=== PATIENT | female | born 1985 | race Caucasian/White ===

== ENCOUNTER 2017-04-26 11:38 | Emergency (ER) | payer OTHER, MEDICAID | END 2017-04-26 13:51 | disposition home or self-care (01) | LOC: M ED 11:38 | DX: F41.9 Anxiety disorder, unspecified (principal); I10 Essential (primary) hypertension; F31.9 Bipolar disorder, unspecified | CPT/HCPCS: 99283 ==

== ENCOUNTER → 2017-05-05 | Outpatient (REF) | payer OTHER | LOC: M LAB REF 19:23 | DX: F11.20 Opioid dependence, uncomplicated (principal) ==

== ENCOUNTER → 2017-05-12 | Outpatient (REF) | payer OTHER | LOC: M LAB REF 22:28 | DX: F11.20 Opioid dependence, uncomplicated (principal) | CPT/HCPCS: G0480 ==

== ENCOUNTER → 2017-05-19 | Outpatient (REF) | payer OTHER | LOC: M LAB REF 19:49 | DX: F11.20 Opioid dependence, uncomplicated (principal) | CPT/HCPCS: G0480 ==

== ENCOUNTER → 2017-05-26 | Outpatient (REF) | payer OTHER | LOC: M LAB REF 21:46 | DX: F11.20 Opioid dependence, uncomplicated (principal) ==

== ENCOUNTER → 2017-06-02 | Outpatient (REF) | payer OTHER ==
[2017-06-09 14:15] LABS: AMPHETAMINE SCREEN, URINE Negative ng/mL (Cutoff=1000); BARBITURATES SCREEN, URINE Negative ng/mL (Cutoff=200); BENZODIAZEPINES, URINE SCREEN Negative ng/mL (Cutoff=200); CANNABINOID SCREEN, URINE Negative ng/mL (Cutoff=20); COCAINE SCREEN, URINE Negative ng/mL (Cutoff=300); FENTANYL URINE SCREEN Negative pg/mL (Cutoff=2000); METHADONE, URINE SCREEN Negative ng/mL (Cutoff=300); NALOXONE RESULT Positive (.); OPIATE SCREEN, URINE Negative ng/mL (Cutoff=300); OXYCODONE, SCREEN, URINE Negative ng/mL (Cutoff=100); PCP SCREEN, URINE Negative ng/mL (Cutoff=25); SPECIFIC GRAVITY, URINE 1.011 (.); URINE BUPRENORPHINE Positive (.); URINE BUPRENORPHINE Positive (Cutoff=10); URINE BUPRENORPHINE See Final Results ng/mL (Cutoff=10); URINE BUPRENORPHINE CONFIRM 152 ng/mL (Cutoff=10); URINE NORBUPRENORPHINE Positive (.); URINE NORBUPRENORPHINE CONFIRM 546 ng/mL (Cutoff=10); pH, URINE 5.7 (4.5-8.9)
== END ==
LOC: M LAB REF 20:11
DX: F11.20 Opioid dependence, uncomplicated (principal)
CPT/HCPCS: G0480

== ENCOUNTER → 2017-06-08 | Outpatient (REF) | payer OTHER | LOC: M LAB REF 08:56 | DX: F11.20 Opioid dependence, uncomplicated (principal) ==

== ENCOUNTER → 2017-06-16 | Outpatient (REF) | payer OTHER ==
[2017-06-22 14:18] LABS: AMPHETAMINE SCREEN, URINE Negative ng/mL (Cutoff=1000); BARBITURATES SCREEN, URINE Negative ng/mL (Cutoff=200); BENZODIAZEPINES, URINE SCREEN Negative ng/mL (Cutoff=200); CANNABINOID SCREEN, URINE Negative ng/mL (Cutoff=20); COCAINE SCREEN, URINE Negative ng/mL (Cutoff=300); CREATININE, URINE 80.7 mg/dL (20.0-300.0); FENTANYL URINE SCREEN Negative pg/mL (Cutoff=2000); METHADONE, URINE SCREEN Negative ng/mL (Cutoff=300); NALOXONE RESULT Positive (.); OPIATE SCREEN, URINE Negative ng/mL (Cutoff=300); OXYCODONE, SCREEN, URINE Negative ng/mL (Cutoff=100); PCP SCREEN, URINE Negative ng/mL (Cutoff=25); SPECIFIC GRAVITY, URINE 1.016 (.); URINE BUPRENORPHINE Positive (.); URINE BUPRENORPHINE Positive (Cutoff=10); URINE BUPRENORPHINE See Final Results ng/mL (Cutoff=10); URINE BUPRENORPHINE CONFIRM 214 ng/mL (Cutoff=10); URINE NORBUPRENORPHINE Positive (.); URINE NORBUPRENORPHINE CONFIRM 772 ng/mL (Cutoff=10); pH, URINE 6.1 (4.5-8.9)
== END ==
LOC: M LAB REF 17:26
DX: F11.20 Opioid dependence, uncomplicated (principal)
CPT/HCPCS: G0480

== ENCOUNTER → 2017-07-07 | Outpatient (REF) | payer OTHER | LOC: M LAB REF 16:38 | DX: F11.20 Opioid dependence, uncomplicated (principal) ==

== ENCOUNTER 2017-07-17 19:23 | Emergency (ER) | payer OTHER ==
[2017-07-17] MEDS: ALPRAZolam 0.5 MG TAB PO (21:19)
== END 2017-07-17 21:56 | disposition home or self-care (01) ==
LOC: M ED 19:23
DX: F19.188 Other psychoactive substance abuse with other psychoactive substance-induced disorder (principal); F41.9 Anxiety disorder, unspecified; F17.210 Nicotine dependence, cigarettes, uncomplicated; Z79.899 Other long term (current) drug therapy
CPT/HCPCS: 99283

== ENCOUNTER → 2017-07-21 | Outpatient (REF) | payer OTHER | LOC: M LAB REF 15:15 | DX: F11.20 Opioid dependence, uncomplicated (principal) | CPT/HCPCS: G0480 ==

== ENCOUNTER → 2017-08-04 | Outpatient (REF) | payer OTHER ==
[2017-08-11 14:15] LABS: ALPRAZOLAM, URINE Positive (.); ALPRAZOLAM, URINE CONFIRM 226 ng/mL (Cutoff=100); AMPHETAMINE SCREEN, URINE Negative ng/mL (Cutoff=1000); BARBITURATES SCREEN, URINE Negative ng/mL (Cutoff=200); BENZODIAZEPINES, URINE Positive ng/mL (Cutoff=100); BENZODIAZEPINES, URINE SCREEN See Final Results ng/mL (Cutoff=200); CANNABINOID SCREEN, URINE Negative ng/mL (Cutoff=20); CLONAZEPAM, URINE Negative (Cutoff=100); COCAINE SCREEN, URINE Negative ng/mL (Cutoff=300); CREATININE, URINE 56.4 mg/dL (20.0-300.0); FENTANYL URINE SCREEN Negative pg/mL (Cutoff=2000); FLURAZEPAM, URINE Negative (Cutoff=100); LORAZEPAM, URINE Negative (Cutoff=100); METHADONE, URINE SCREEN Negative ng/mL (Cutoff=300); MIDAZOLAM, URINE Negative (Cutoff=100); NALOXONE RESULT Positive (.); NORDIAZEPAM, URINE Negative (Cutoff=100); OPIATE SCREEN, URINE Negative ng/mL (Cutoff=300); OXAZEPAM, URINE Negative (Cutoff=100); OXYCODONE, SCREEN, URINE Negative ng/mL (Cutoff=100); PCP SCREEN, URINE Negative ng/mL (Cutoff=25); SPECIFIC GRAVITY, URINE 1.008 (.); TEMAZEPAM, URINE Negative (Cutoff=100); TRIAZOLAM, URINE Negative (Cutoff=100); URINE BUPRENORPHINE Positive (.); URINE BUPRENORPHINE Positive (Cutoff=10); URINE BUPRENORPHINE See Final Results ng/mL (Cutoff=10); URINE BUPRENORPHINE CONFIRM 160 ng/mL (Cutoff=10); URINE NORBUPRENORPHINE Positive (.); URINE NORBUPRENORPHINE CONFIRM 564 ng/mL (Cutoff=10); pH, URINE 5.5 (4.5-8.9)
== END ==
LOC: M LAB REF 09:57
DX: F11.20 Opioid dependence, uncomplicated (principal)

== ENCOUNTER → 2017-08-06 | Outpatient (REF) | payer OTHER ==
[2017-08-12 10:14] LABS: ALPRAZOLAM, URINE Positive (.); ALPRAZOLAM, URINE CONFIRM 870 ng/mL (Cutoff=100); AMPHETAMINE SCREEN, URINE Negative ng/mL (Cutoff=1000); BARBITURATES SCREEN, URINE Negative ng/mL (Cutoff=200); BENZODIAZEPINES, URINE Positive ng/mL (Cutoff=100); BENZODIAZEPINES, URINE SCREEN See Final Results ng/mL (Cutoff=200); CANNABINOID SCREEN, URINE Negative ng/mL (Cutoff=20); CLONAZEPAM, URINE Negative (Cutoff=100); COCAINE SCREEN, URINE Negative ng/mL (Cutoff=300); CREATININE, URINE 154.1 mg/dL (20.0-300.0); FENTANYL URINE SCREEN Negative pg/mL (Cutoff=2000); FLURAZEPAM, URINE Negative (Cutoff=100); LORAZEPAM, URINE Negative (Cutoff=100); METHADONE, URINE SCREEN Negative ng/mL (Cutoff=300); MIDAZOLAM, URINE Negative (Cutoff=100); NALOXONE RESULT Positive (.); NORDIAZEPAM, URINE Negative (Cutoff=100); OPIATE SCREEN, URINE Negative ng/mL (Cutoff=300); OXAZEPAM, URINE Negative (Cutoff=100); OXYCODONE, SCREEN, URINE Negative ng/mL (Cutoff=100); PCP SCREEN, URINE Negative ng/mL (Cutoff=25); SPECIFIC GRAVITY, URINE 1.017 (.); TEMAZEPAM, URINE Negative (Cutoff=100); TRIAZOLAM, URINE Negative (Cutoff=100); URINE BUPRENORPHINE Positive (.); URINE BUPRENORPHINE Positive (Cutoff=10); URINE BUPRENORPHINE See Final Results ng/mL (Cutoff=10); URINE BUPRENORPHINE CONFIRM 640 ng/mL (Cutoff=10); URINE NORBUPRENORPHINE Positive (.); URINE NORBUPRENORPHINE CONFIRM 722 ng/mL (Cutoff=10); pH, URINE 5.5 (4.5-8.9)
== END ==
LOC: M LAB REF 16:26
DX: F11.20 Opioid dependence, uncomplicated (principal)
CPT/HCPCS: G0480

== ENCOUNTER → 2017-08-10 | Outpatient (REF) | payer OTHER | LOC: M LAB REF 11:48 | DX: F11.20 Opioid dependence, uncomplicated (principal) | CPT/HCPCS: G0480 ==

== ENCOUNTER → 2017-08-13 | Outpatient (REF) | payer OTHER | LOC: M LAB REF 19:01 | DX: F11.20 Opioid dependence, uncomplicated (principal) ==

== ENCOUNTER → 2017-08-17 | Outpatient (REF) | payer OTHER ==
[2017-08-31 14:16] LABS: ALPRAZOLAM, URINE Positive (.); ALPRAZOLAM, URINE CONFIRM 174 ng/mL (Cutoff=100); AMPHETAMINE SCREEN, URINE Negative ng/mL (Cutoff=1000); BARBITURATES SCREEN, URINE Negative ng/mL (Cutoff=200); BENZODIAZEPINES, URINE Positive ng/mL (Cutoff=100); BENZODIAZEPINES, URINE SCREEN See Final Results ng/mL (Cutoff=200); CANNABINOID SCREEN, URINE Negative ng/mL (Cutoff=20); CLONAZEPAM, URINE Negative (Cutoff=100); COCAINE SCREEN, URINE Negative ng/mL (Cutoff=300); CREATININE, URINE 40.2 mg/dL (20.0-300.0); FENTANYL URINE SCREEN Negative pg/mL (Cutoff=2000); FLURAZEPAM, URINE Negative (Cutoff=100); LORAZEPAM, URINE Negative (Cutoff=100); METHADONE, URINE SCREEN Negative ng/mL (Cutoff=300); MIDAZOLAM, URINE Negative (Cutoff=100); NALOXONE RESULT Positive (.); NORDIAZEPAM, URINE Negative (Cutoff=100); OPIATE SCREEN, URINE Negative ng/mL (Cutoff=300); OXAZEPAM, URINE Negative (Cutoff=100); OXYCODONE, SCREEN, URINE Negative ng/mL (Cutoff=100); PCP SCREEN, URINE Negative ng/mL (Cutoff=25); SPECIFIC GRAVITY, URINE 1.008 (.); TEMAZEPAM, URINE Negative (Cutoff=100); TRIAZOLAM, URINE Negative (Cutoff=100); URINE BUPRENORPHINE Positive (.); URINE BUPRENORPHINE Positive (Cutoff=10); URINE BUPRENORPHINE See Final Results ng/mL (Cutoff=10); URINE BUPRENORPHINE CONFIRM 22 ng/mL (Cutoff=10); URINE NORBUPRENORPHINE Positive (.); URINE NORBUPRENORPHINE CONFIRM 100 ng/mL (Cutoff=10); pH, URINE 7.4 (4.5-8.9)
== END ==
LOC: M LAB REF 18:47
DX: F11.20 Opioid dependence, uncomplicated (principal)
CPT/HCPCS: G0480

== ENCOUNTER 2017-09-14 13:04 | Emergency (ER) | payer MEDICAID, OTHER | END 2017-09-14 13:33 | disposition home or self-care (01) | LOC: M ED 13:04 | DX: Z76.0 Encounter for issue of repeat prescription (principal); Z72.0 Tobacco use; Z79.899 Other long term (current) drug therapy | CPT/HCPCS: 99282 ==

== ENCOUNTER 2017-09-24 12:09 | Emergency (ER) | payer MEDICAID, SELFPAY | END 2017-09-24 13:34 | disposition home or self-care (01) | LOC: M ED 12:09 | DX: Z76.0 Encounter for issue of repeat prescription (principal); F19.10 Other psychoactive substance abuse, uncomplicated; J45.909 Unspecified asthma, uncomplicated; F17.200 Nicotine dependence, unspecified, uncomplicated; Z79.899 Other long term (current) drug therapy | CPT/HCPCS: 99282 ==

== ENCOUNTER → 2017-10-04 | Outpatient (REF) | payer MEDICAID | LOC: M SFHCPLAZ 14:21 | DX: F19.10 Other psychoactive substance abuse, uncomplicated (principal) ==

== ENCOUNTER → 2017-12-08 | Outpatient (CLI) | payer MEDICAID | LOC: M OUTALCOH 13:16 | DX: Z13.89 Encounter for screening for other disorder (principal); F11.20 Opioid dependence, uncomplicated; F12.10 Cannabis abuse, uncomplicated ==

== ENCOUNTER 2017-12-16 15:50 | Outpatient (RCR) | payer MEDICAID | END 2017-12-19 | LOC: M OUTALCOH 15:50 | DX: F11.20 Opioid dependence, uncomplicated (principal); F12.10 Cannabis abuse, uncomplicated ==

== ENCOUNTER 2017-12-23 14:00 | Outpatient (RCR) | payer MEDICAID | END 2018-01-19 | LOC: M OUTALCOH 01-03 16:00 | DX: F11.20 Opioid dependence, uncomplicated (principal); F12.10 Cannabis abuse, uncomplicated ==

== ENCOUNTER 2018-11-15 10:46 | Inpatient (IN) | payer MEDICAID, OTHER ==
[~2018-11-15] VITALS: Ht 157.5 cm; Wt 61.7 kg
[~2018-11-15 10:46] MED LIST: ABIL10TA OR; ABIL1TAB11 PO; ATIV1TAB7 PO; KLON0.5T OR; KLON2TAB OR; LISI10TA4 PO; LORA0.5T11 PO; PRAZ2CAP PO; PROZ20CA11 PO; SUBO8MIS SL; TRAZ-252 PO; XANA1TAB2 PO; XANA2TAB2 PO; ZOFR4TAB14 PO; ZOLO PO; ZOLO50TA OR
[2018-11-15] MEDS ORDERED: ALPRAZolam 0.5 MG TAB PO ONE (11:00)
[2018-11-15] MEDS ORDERED: diphenhydrAMINE INJ 50MG/ML VIAL (J1200) IM ONE ×2 (11:30→19:30)
[2018-11-15] MEDS ORDERED: LORazepam 2 MG/ML VIAL (J2060) IM ONE ×2 (11:30→19:30)
[2018-11-15] MEDS ORDERED: HALOPERIDOL 5 MG/ML VIAL (J1630) IM ONE ×2 (11:30→19:30)
[2018-11-15 12:49] LABS: HEMATOCRIT 39.6 % (36.0-47.0); HEMOGLOBIN 13.9 g/dl (12.0-15.5); MEAN CORPUSCULAR HEMOGLOBIN 29.6 pg (27.0-33.0); MEAN CORPUSCULAR HGB CONC 35.1 g/dl (32.0-36.5); MEAN CORPUSCULAR VOLUME 84.4 fl (80.0-96.0); PLATELET COUNT, AUTOMATED 285 10^3/uL (150-450); RED BLOOD COUNT 4.69 10^6/uL (4.00-5.40)
[2018-11-15 13:02] LABS: ACETAMINOPHEN LEVEL < 2.0 UG/ML (10.0-30.0); ALBUMIN 4.1 GM/DL (3.2-5.2); ALT/SGPT 18 U/L (12-78); BILIRUBIN,DIRECT 0.2 MG/DL (0.0-0.2); BILIRUBIN,TOTAL 0.6 MG/DL (0.2-1.0); BLOOD UREA NITROGEN 13 MG/DL (7-18); CALCIUM LEVEL 9.4 MG/DL (8.5-10.1); CARBON DIOXIDE LEVEL 22 MEQ/L (21-32); CHLORIDE LEVEL 103 MEQ/L (98-107); CREATININE FOR GFR 0.98 MG/DL (0.55-1.30); ETHYL ALCOHOL (ETHANOL) 0.003 % (0.000-0.010); GLOMERULAR FILTRATION RATE > 60.0 (>60); GLUCOSE, FASTING 110 MG/DL (70-100); POTASSIUM SERUM 3.7 MEQ/L (3.5-5.1); SODIUM LEVEL 138 MEQ/L (136-145)
[2018-11-15 13:05] LABS: HCG, SERUM QUALITATIVE NEGATIVE (NEGATIVE)
[2018-11-15 14:19] LABS: AMPHETAMINES LEVEL URINE POSITIVE (NEGATIVE); BARBITURATES URINE NEGATIVE (NEGATIVE); BENZODIAZEPINES URINE NEGATIVE (NEGATIVE); CANNABINOIDS URINE POSITIVE (NEGATIVE); COCAINE METABOLITE URINE NEGATIVE (NEGATIVE); METHADONE URINE NEGATIVE (NEGATIVE); OPIATES URINE NEGATIVE (NEGATIVE); PHENCYCLIDINE URINE NEGATIVE (NEGATIVE)
[2018-11-15] MEDS ORDERED: LORazepam 1 MG TAB PO STA (16:16)
[2018-11-15 16:29] LABS: BASO # 0.1 10^3/uL (0.0-0.2); BASO % 0.5 % (0.0-1.0); EOS # 0.1 10^3/uL (0.0-0.50); EOS % 0.3 % (0.0-3.0); LYMPH # 2.5 10^3/uL (1.5-4.5); LYMPH % 13.1 % (24.0-44.0); MONO # 1.1 10^3/uL (0.0-0.8); MONO % 5.8 % (0.0-5.0); NEUTROPHILS % 79.9 % (36.0-66.0)
[2018-11-15 17:00] LABS: BASO # 0.1 10^3/uL (0.0-0.2); BASO % 0.4 % (0.0-1.0); EOS % 0.2 % (0.0-3.0); HEMATOCRIT 35.5 % (36.0-47.0); HEMOGLOBIN 12.5 g/dl (12.0-15.5); LYMPH # 3.4 10^3/uL (1.5-4.5); LYMPH % 18.6 % (24.0-44.0); MEAN CORPUSCULAR HGB CONC 35.2 g/dl (32.0-36.5); MEAN CORPUSCULAR VOLUME 85.1 fl (80.0-96.0); MONO % 5.2 % (0.0-5.0); NEUTROPHILS # 13.8 10^3/uL (1.8-7.7); NEUTROPHILS % 75.2 % (36.0-66.0); PLATELET COUNT, AUTOMATED 258 10^3/uL (150-450); RED BLOOD COUNT 4.17 10^6/uL (4.00-5.40); WHITE BLOOD COUNT 18.4 10^3/uL (4.0-10.0)
[2018-11-15] MEDS ORDERED: LORazepam 2 MG/ML VIAL (J2060) IV STA ×3 (17:20→19:54)
[2018-11-15] MEDS ORDERED: NS 1,000 ML IV ONE (17:30)
[2018-11-15 18:45] LABS: CPK CREATINE PHOSPHOKINASE 373 U/L (26-192); MB/CK RELATIVE INDEX 1.07 (< OR =4); TROPONIN I < 0.02 NG/ML (< 0.10)
[2018-11-15] MEDS ORDERED: ETOMIDATE INJ 20MG/10ML VIAL IV STA (20:29)
[2018-11-15] MEDS ORDERED: ROCURONIUM BROMIDE 50 MG/5 ML VIAL IV SCH (20:30)
[2018-11-15] MEDS ORDERED: MIDAZOLAM INJ 2 MG/2 ML VIAL (J2250) IV ONE (20:30)
[2018-11-15] MEDS ORDERED: PROPOFOL 1,000 MG in APPROPRIATE DILUENT 1 EA IV SCH (20:45)
[2018-11-15] MEDS ORDERED: ATOR1TAB21 PO (21:32)
[2018-11-15] MEDS ORDERED: SUBO8MIS SL (21:32)
[2018-11-15] MEDS ORDERED: GUAN1TAB18 PO (21:32)
[2018-11-15] MEDS ORDERED: ALPR2TAB3 PO (21:32)
[2018-11-15] MEDS ORDERED: TRAZ-186 PO (21:32)
[2018-11-15] MEDS ORDERED: VENL75CA47 PO (21:32)
[2018-11-15] MEDS ORDERED: MIDAZOLAM INJ 5 MG/ML VIAL (J2250) As Ordered ONE ×2 (21:46→22:49)
--- NOTE | 2018-11-15 21:46 | REPVR ---
EXAM: CT Head Without Contrast EXAM DATE/TIME: 11/15/2018 9:23 PM CLINICAL HISTORY: 32 years old, female; Altered mental status/memory loss TECHNIQUE: Imaging protocol: Computed tomography images of the head without contrast. Radiation optimization: All CT scans at this facility use at least one of these dose optimization techniques: automated exposure control; mA and/or kV adjustment per patient size (includes targeted exams where dose is matched to clinical indication); or iterative reconstruction. COMPARISON: No relevant prior studies available. FINDINGS: Brain: No acute intracranial hemorrhage or mass effect. No discrete geographic area of hypoattenuation to suggest territorial infarct identified at this time. Ventricles: No ventriculomegaly. Bones/joints: No acute fracture. Sinuses: No fluid levels. Mastoid air cells: Visualized mastoid air cells are well aerated. No mastoid effusion. Soft tissues: Unremarkable. IMPRESSION: No acute intracranial abnormality. Electronically signed by: Onel Smith On 11/15/2018 21:46:28 PM
[2018-11-15 22:51] LABS: ALBUMIN 3.6 GM/DL (3.2-5.2); ALT/SGPT 21 U/L (12-78); BILIRUBIN,DIRECT 0.2 MG/DL (0.0-0.2); BILIRUBIN,TOTAL 0.8 MG/DL (0.2-1.0); BLOOD UREA NITROGEN 12 MG/DL (7-18); C REACTIVE PROTEIN QUANTITATIV 1.24 MG/DL (0.00-0.30); CALCIUM LEVEL 8.6 MG/DL (8.5-10.1); CARBON DIOXIDE LEVEL 22 MEQ/L (21-32); CHLORIDE LEVEL 107 MEQ/L (98-107); CK-MB VALUE MASS 16.9 NG/ML (<3.6); CPK CREATINE PHOSPHOKINASE 2219 U/L (26-192); CREATININE FOR GFR 0.73 MG/DL (0.55-1.30); GLOMERULAR FILTRATION RATE > 60.0 (>60); GLUCOSE, FASTING 87 MG/DL (70-100); MB/CK RELATIVE INDEX 0.76 (< OR =4); POTASSIUM SERUM 3.3 MEQ/L (3.5-5.1); SODIUM LEVEL 140 MEQ/L (136-145); TOTAL PROTEIN 7.1 GM/DL (6.4-8.2); TROPONIN I < 0.02 NG/ML (< 0.10)
[2018-11-15 22:53] LABS: OSMOLALITY SERUM 288 MOSM/KG (275-295)
[2018-11-15] MEDS: PROPOFOL 1,000 MG in APPROPRIATE DILUENT 1 EA IV SCH (23:15)
--- NOTE | 2018-11-15 23:22 | RO ---
DATE OF PROCEDURE: 11/15/2018 PREPROCEDURE DIAGNOSIS: Respiratory failure requiring mechanical ventilatory support. POSTPROCEDURE DIAGNOSIS: Respiratory failure requiring mechanical ventilatory support. OPERATIVE PROCEDURE: Insertion of triple lumen central venous catheter. Site: Right femoral vein. SURGEON: Chris Shaw MD NURSERYPERSON: ANESTHESIA: Intravenous propofol. DESCRIPTION OF PROCEDURE: Procedure performed emergently. After right femoral area was prepped and draped in the usual sterile manner, direct femoral vein was easily cannulated with a large core needle. In a modified Seldinger technique, a triple lumen central venous catheter was easily advanced. Good venous return was obtained from all three ports. Each port was then flushed. The line was sutured in place. Sterile dressing applied. No immediate complications identified.
[2018-11-16] VITALS (18 sets, daily range): BP systolic 119–170; BP diastolic 78–119; O2SAT 98–99
--- NOTE | 2018-11-16 | CR ---
DATE OF CONSULTATION: 11/15/2018 PULMONARY CRITICAL CARE CONSULTATION REASON FOR CONSULTATION: For ventilator management. ATTENDING PHYSICIAN: Dr. Honeycutt HISTORY OF THE PRESENT ILLNESS: Ms. Torres is a 32-year-old female with a known psychiatric history. She presented to the emergency room (ER) earlier today with agitation. This progressed through the day. She became combative and was sedated and intubated for completion of her workup. Chest x-ray done post-intubation and after attempt of a central line at the left subclavian area by the ER, shows the endotracheal (ET) tube in good position, nasogastric (NG) tube in good position below the diaphragm and no evidence of pneumothorax. No infiltrates. She is unable to give any history. CT of the head is dictated as no acute intracranial abnormality. In the ER, laboratories done earlier today at 12:30 show a white blood cell count of 19, 79 segmented neutrophils, no bands. Sodium 138, potassium 3.7, chloride 103, CO2 of 22, BUN 13, creatinine 0.98. CK initially 373. Repeat laboratories just done will be dictated further below. ALLERGIES: Listed as none. MEDICATIONS AT HOME: Include; - Xanax 2 mg twice a day - Abilify 5 mg daily - Suboxone 8 mg daily - Prozac 60 mg a day - lisinopril 10 mg a day - prazosin 3 mg twice a day PAST MEDICAL HISTORY: Significant mainly for her psychiatric history. SOCIAL HISTORY: Unobtainable. FAMILY HISTORY AND REVIEW OF SYSTEMS: Essentially unobtainable. PHYSICAL EXAM: Currently reveals a female, appears her stated age, sedated, intubated, mechanically ventilated. Blood pressure 148 systolic, heart rate 100 with a sinus mechanism and is regular, respiratory rate 15 ventilator. She is currently afebrile. HEENT: Shows the oral endotracheal tube and nasogastric tubes in place. She has bilateral hematomas of the neck from intravenous jugular attempts by the ER earlier. Carotids are easily palpable. Trachea is in the midline. Chest is clear to both auscultation and percussion , and no significant focal adventitious breath sounds are identified. Tactile fremitus palpable throughout. Cardiac Exam: Borderline tachycardic but regular. Peripheral pulses palpable. No edema. Abdomen: Soft, nontender with active bowel sounds. No convincing organomegaly or masses. Extremities: No cyanosis or clubbing. Neurologically she is sedate but does move all extremities when stimulated. Psychiatric exam shows her to be sedate. Repeat laboratories show a lactic acid of 2.4, sodium 140, potassium 3.3, chloride 107, CO2 of 22, BUN 12, creatinine 0.73, CK 2219. Blood gas done at 2102 hours just prior to intubation shows a pH of 7.314, pCO2 of 38 and a paO2 of 92. White blood cell count remains mildly elevated at 18.4, 74% segmented neutrophils, no bands, hemoglobin 12.5. Chest x-ray and CT scan as outlined above. IMPRESSION: 1. Respiratory failure secondary to polypharmacy drug ingestion and psychiatric history. 2. Agitation secondary to the above. 3. Mental health issues. RECOMMENDATIONS: At this point, we will optimize her ventilatory status. She is sedated. Hospitalist service is admitting. She is being adequately hydrated. Ulcer and deep vein thrombosis (DVT) prophylaxis have been ordered by them. I will repeat her blood gas. She is making reasonable urine. At this point, she is critically ill. Further recommendations will be made in the progress notes as new information is available.
[2018-11-16 00:13] LABS: ABG BASE EXCESS -2.8 (-2.0-2.0); ABG HCO3 22.2 MEQ/L (22.0-26.0); ABG O2 SATURATION 99.1 % (95.0-99.0); ABG PARTIAL PRESSURE CO2 39.5 mmHg (35.0-45.0); ABG PARTIAL PRESSURE O2 178.2 mmHg (75.0-100.0); ABG STANDARD HCO3 22.2 MEQ/L (22.0-26.0); ABG TOTAL CO2 23.4 MEQ/L (22.0-29.0); ABG pH (ARTERIAL) 7.368 UNITS (7.350-7.450)
--- NOTE | 2018-11-16 00:33 | HPEPDOC ---
General Date of Admission Date of Service: Nov 16, 2018 Chief Complaint The patient is a 32-year-old female admitted with a reason for visit of Fatigue. Source: RN/MD, RN notes reviewed Exam Limitations: Clinical conditions, Other Associated Symptoms: Unobtainable History of Present Illness 32 y/o F with psych history, IVDA presents to ED earlier today after being found by police agitated and yelling with concern of acute psychiatric episode vs intoxication. Patient was given sedation in the ED and initially had disposition for psychiatric evaluation however she was persistently altered and became combative when sedation wore off and was subsequently intubated for completion of work up. At the time of my exam patient is intubated and sedated, no further history could be obtained at this time. Home Medications Scheduled Atorvastatin Calcium (Atorvastatin Calcium) 20 Mg Tablet, 20 MG PO DAILY, (Reported) Buprenorphine HCl/Naloxone HCl (Suboxone 8 mg-2 mg Sl Film) 1 Each Film, 1 STRIP SL BID, (Reported) Guanfacine HCl (Guanfacine HCl ER) 3 Mg Tab.er.24h, 3 MG PO DAILY, (Reported) Trazodone HCl (Trazodone HCl) 50 Mg Tablet, 50 MG PO QHS, (Reported) Venlafaxine HCl (Venlafaxine HCl ER) 75 Mg Cap.er.24h, 75 MG PO DAILY, (Reported) Scheduled PRN Alprazolam (Alprazolam) 2 Mg Tablet, 2 MG PO BID PRN for ANXIETY, (Reported) Allergies Coded Allergies: No Known Allergies (Unverified , 11/15/18) Past Medical History Medical History Psychiatric history Surgical History Unknown Family History Significant Family History: Noncontributory unknown Social History * Smoker: other Drugs: marijuana, IV drug use, other A-FIB/CHADSVASC A-FIB History Current/History of A-Fib/PAF?: No Review of Systems Other systems ROS unable to be obtained as patient is intubated and sedated at this time. Physical Examination Other physical findings Vital signs reviewed GEN: intubated and sedated. Female of stated age HEENT: atraumatic, ET tube in place, NGT in right nostril, b/l neck hematomas from EJ/IJ attempts by ER, carotids palpable Cardio: tachycardic but regular rhythm, no m/r/g noted. Pulses palpable in all extremities, cap refill <2 seconds Chest: good air entry b/l, no wheezing, no rales or rhonchi noted Abd: s, nt, nd, bs present Ext: no Edema noted. Right femoral central like in place. : paz catheter in place Skin: warm, dry, no rashes, multiple tattoos noted Neuro: Sedated, unable to assess Psych: sedated, unable to assess Lymph: no significant lymphadenopathy noted. Vital Signs Vital Signs Date Time Temp Pulse Resp B/P (MAP) Pulse Ox O2 Delivery O2 Flow Rate FiO2 11/16/18 00:15 102 15 156/103 (120) 100 Ventilator 11/15/18 15:01 98.7 Laboratory Data Labs 24H Laboratory Tests 2 11/15/18 12:00: Anion Gap 13, Glomerular Filtration Rate > 60.0, Calcium Level 9.4, Aspartate Amino Transf (AST/SGOT) 23, Alanine Aminotransferase (ALT/SGPT) 18, Alkaline Phosphatase 86, Total Bilirubin 0.6, Direct Bilirubin 0.2, Total Creatine Kinase 373H, Creatine Kinase MB 4.0H, Creatine Kinase MB Relative Index 1.07, Troponin I < 0.02, Total Protein 8.0, Albumin 4.1, Albumin/Globulin Ratio 1.05, Thyroid Stimulating Hormone (TSH) 1.260, Human Chorionic Gonadotropin, Qual NEGATIVE, Salicylates Level 4.0L, Acetaminophen Level < 2.0L, Ethyl Alcohol Level 0.003 11/15/18 12:30: Immature Granulocyte % (Auto) 0.4, Neutrophils (%) (Auto) 79.9H, Lymphocytes (%) (Auto) 13.1L, Monocytes (%) (Auto) 5.8H, Eosinophils (%) (Auto) 0.3, Basophils (%) (Auto) 0.5, Immature Granulocyte # (Auto) 0.1H, Neutrophils # (Auto) 15.0H, Lymphocytes # (Auto) 2.5, Monocytes # (Auto) 1.1H, Eosinophils # (Auto) 0.1, Basophils # (Auto) 0.1, Nucleated Red Blood Cells % (auto) 0.0, Platelet Estimate 11/15/18 13:21: Urine Color CATHY, Urine Appearance CLOUDYH, Urine pH 5.0, Urine Specific [place] 1.020, Urine Protein 2+H, Urine Glucose (UA) NEGATIVE, Urine Ketones TRACEH, Urine Blood NEGATIVE, Urine Nitrite NEGATIVE, Urine Bilirubin NEGATIVE, Urine Urobilinogen 4.0H, Urine Leukocyte Esterase NEGATIVE, Urine WBC (Auto) 3, Urine RBC (Auto) 1, Urine Hyaline Casts (Auto) 9, Urine Bacteria (Auto) NEGATIVE, Urine Squamous Epithelial Cells 1, Urine Amorphous Sediment SMALLH, Urine Mucus (Auto) LARGE, Urine Sperm (Auto) , Urine Amphetamines Screen POSITIVEH, Urine Benzodiazepines Screen NEGATIVE, Urine Opiates Screen NEGATIVE, Urine Methadone Screen NEGATIVE, Urine Barbiturates Screen NEGATIVE, Urine Phencyclidine Screen NEGATIVE, Urine Cocaine Metabolite Screen NEGATIVE, Urine Cannabinoids Screen POSITIVEH 11/15/18 16:02: Immature Granulocyte % (Auto) 0.4, Neutrophils (%) (Auto) 75.2H, Lymphocytes (%) (Auto) 18.6L, Monocytes (%) (Auto) 5.2H, Eosinophils (%) (Auto) 0.2, Basophils (%) (Auto) 0.4, Neutrophils # (Auto) 13.8H, Lymphocytes # (Auto) 3.4, Monocytes # (Auto) 1.0H, Eosinophils # (Auto) 0.0, Basophils # (Auto) 0.1, Nucleated Red Blood Cells % (auto) 0.0, White Blood Count 18.4H, Red Blood Count 4.17, Hemogl obin 12.5, Hematocrit 35.5L, Mean Corpuscular Volume 85.1, Mean Corpuscular Hemoglobin 30.0, Mean Corpuscular Hemoglobin Concent 35.2, Red Cell Distribution Width 12.5, Platelet Count 258 11/15/18 21:02: POC pH (Misc Panel) 7.314L, POC Base Excess (Misc Panel) -7.0L, POC Saturated Percent O2 (Misc) 96, POC pO2 (Misc Panel) 92.0, POC pCO2 (Misc Panel) 38.3, POC HCO3 (Misc Panel) 19.4L, POC Total CO2 (Misc Panel) 21.0L 11/15/18 21:57: Anion Gap 11, Glomerular Filtration Rate > 60.0, Osmolality 288, Lactic Acid Level 2.4*H, Calcium Level 8.6, Aspartate Amino Transf (AST/SGOT) 55H, Alanine Aminotransferase (ALT/SGPT) 21, Alkaline Phosphatase 82, Total Bilirubin 0.8, Direct Bilirubin 0.2, Ammonia 30, Total Creatine Kinase 2219#H, Creatine Kinase MB 16.9H, Creatine Kinase MB Relative Index 0.76, Troponin I < 0.02, C-Reactive Protein, Quantitative 1.24H, Total Protein 7.1, Albumin 3.6, Albumin/Globulin Ratio 1.03 11/15/18 23:59: Blood Gas Bicarbonate Standard 22.2, Arterial Blood pH 7.368, Arterial Blood Partial Pressure CO2 39.5, Arterial Blood Partial Pressure O2 178.2H, Arterial Blood Total CO2 23.4, Arterial Blood HCO3 22.2, Arterial Blood Base Excess - 2.8L, Arterial Blood Oxygen Saturation 99.1H CBC/BMP Laboratory Tests 11/15/18 12:00 11/15/18 12:30 Red Blood Count 4.69, Mean Corpuscular Volume 84.4, Mean Corpuscular Hemoglobin 29.6, Mean Corpuscular Hemoglobin Concent 35.1, Red Cell Distribution Width 12.5 11/15/18 16:02 Red Blood Count 4.17, Mean Corpuscular Volume 85.1, Mean Corpuscular Hemoglobin 30.0, Mean Corpuscular Hemoglobin Concent 35.2, Red Cell Distribution Width 12.5, Neutrophils (%) (Auto) 75.2 H, Lymphocytes (%) (Auto) 18.6 L, Monocytes (%) (Auto) 5.2 H, Eosinophils (%) (Auto) 0.2, Basophils (%) (Auto) 0.4, Neutrophils # (Auto) 13.8 H, Lymphocytes # (Auto) 3.4, Monocytes # (Auto) 1.0 H, Eosinophils # (Auto) 0.0, Basophils # (Auto) 0.1 11/15/18 21:57 Microbiology Microbiology 11/15/18 Blood Culture, Received Pending 11/15/18 Blood Culture, Received Pending RAD Interpretation Rad Actions: Wet Read Reviewed Assessment/Plan 32 y/o F with known psych history and IVDA hx presents with AMS likely due to drug use (amphetamine and cannabinoid positive on Utox) with acute delirium requiring intubation to complete medical work up and airway protection. Plan / VTE VTE Prophylaxis Ordered?: Yes Plan / Urinary Catheter Urinary Catheter: Place Paz Reason for insertion/continuin: Critical Pt monitoring Plan Plan AMS/delirium likely due to amphetamine use -Utox positive as above -CT wnl -Leukocytosis noted however no clear evidence of infection on imaging or UA, will monitor clinically for now, hold antibiotics, follow up Blood cultures. -Supportive care, currently sedated and intubated. Reassess mental status when able to be extubated Respiratory failure due to acute intoxication -Pulmonary/Critical care consulted for ventilator management. Discussed with Dr. Shaw -daily CXR, assess for extubation. Sedation with propofol ordered Drug induced Rhabdomyolysis -aggressive IVF hydration, start with NS @ 150 cc/hr. Trend CK and repeat lactic acid to ensure down trending. -Monitor renal function Feeding: NGT is in place per my review of CXR. If remains intubated tomorrow will start feeding via NGT. Dvt ppx: Lovenox Disposition To be determined DAT MCNEILL MD Nov 16, 2018 00:33
[2018-11-16] MEDS: NS 1,000 ML IV SCH ×6 (01:28→20:35)
[2018-11-16] MEDS: hydrALAZINE INJ 20 MG/ML VIAL IV SCH ×4 (03:10→20:35)
[2018-11-16] MEDS: MIDAZOLAM INJ 2 MG/2 ML VIAL (J2250) IV PRN ×4 (03:35→07:08)
[2018-11-16] MEDS ORDERED: ETOMIDATE INJ 20MG/10ML VIAL ONE (03:44)
[2018-11-16] MEDS ORDERED: ROCURONIUM BROMIDE 50 MG/5 ML VIAL ONE (03:44)
[2018-11-16] MEDS ORDERED: ACETAMINOPHEN TAB 650MG DOSE (2X325MG) PO PRN (04:30)
[2018-11-16] MEDS: PROPOFOL 1,000 MG in APPROPRIATE DILUENT 1 EA IV SCH (05:11)
[2018-11-16 05:17] LABS: BASO # 0.1 10^3/uL (0.0-0.2); BASO % 0.7 % (0.0-1.0); EOS # 0.2 10^3/uL (0.0-0.50); EOS % 1.4 % (0.0-3.0); HEMATOCRIT 33.7 % (36.0-47.0); HEMOGLOBIN 11.6 g/dl (12.0-15.5); LYMPH # 4.4 10^3/uL (1.5-4.5); LYMPH % 39.3 % (24.0-44.0); MEAN CORPUSCULAR HEMOGLOBIN 29.3 pg (27.0-33.0); MEAN CORPUSCULAR HGB CONC 34.4 g/dl (32.0-36.5); MEAN CORPUSCULAR VOLUME 85.1 fl (80.0-96.0); MONO % 8.9 % (0.0-5.0); NEUTROPHILS # 5.5 10^3/uL (1.8-7.7); NEUTROPHILS % 49.4 % (36.0-66.0); PLATELET COUNT, AUTOMATED 242 10^3/uL (150-450); RED BLOOD COUNT 3.96 10^6/uL (4.00-5.40); WHITE BLOOD COUNT 11.1 10^3/uL (4.0-10.0)
--- NOTE | 2018-11-16 05:34 | ECGEPIP ---
[facility] - ED Test Date: 2018-11-15 Pat Name: RICHARD CARRANZA Department: Room: - Gender: Female Health And Safety Trainer: : 1985 Requested By: RODRICK Zapien Order Number: [id number] Reading MD: Bryn Delgadillo Measurements Intervals [place] Rate: 112 P: 53 IA: 131 QRS: 43 QRSD: 85 T: -9 QT: 362 QTc: 495 Interpretive Statements SINUS TACHYCARDIA ST DEVIATION AND MODERATE T-WAVE ABNORMALITY, CONSIDER ANTERIOR ISCHEMIA NO PRIORS FOR COMPARISON Electronically Signed on 11-16-2018 5:33:56 EDT by Bryn Delgadillo
[2018-11-16 05:56] LABS: ALBUMIN 3.4 GM/DL (3.2-5.2); ALT/SGPT 19 U/L (12-78); BILIRUBIN,TOTAL 0.4 MG/DL (0.2-1.0); BLOOD UREA NITROGEN 12 MG/DL (7-18); CALCIUM LEVEL 8.3 MG/DL (8.5-10.1); CARBON DIOXIDE LEVEL 26 MEQ/L (21-32); CHLORIDE LEVEL 108 MEQ/L (98-107); CPK CREATINE PHOSPHOKINASE 1988 U/L (26-192); CREATININE FOR GFR 0.65 MG/DL (0.55-1.30); GLOMERULAR FILTRATION RATE > 60.0 (>60); GLUCOSE, FASTING 89 MG/DL (70-100); POTASSIUM SERUM 3.1 MEQ/L (3.5-5.1); SODIUM LEVEL 140 MEQ/L (136-145); TOTAL PROTEIN 6.5 GM/DL (6.4-8.2)
[2018-11-16 05:58] LABS: ABG BASE EXCESS 0.6 (-2.0-2.0); ABG HCO3 24.2 MEQ/L (22.0-26.0); ABG O2 SATURATION 97.9 % (95.0-99.0); ABG PARTIAL PRESSURE CO2 35.6 mmHg (35.0-45.0); ABG PARTIAL PRESSURE O2 101.6 mmHg (75.0-100.0); ABG TOTAL CO2 25.3 MEQ/L (22.0-29.0); ABG pH (ARTERIAL) 7.451 UNITS (7.350-7.450)
[2018-11-16] MEDS ORDERED: KCL 20MEQ IN 100ML SWI (KRUN) 20 MEQ in APPROPRIATE DILUENT 1 EA IV ONE ×4 (06:15→09:00)
--- NOTE | 2018-11-16 08:06 | IPNPDOC ---
Text Note Date of Service The patient was seen on 11/16/18. NOTE HPI: Patient is a 32 yo female with PMH of IV drug use, depression/anxiety, HTN, and asthma presents to [facility] ED after being found by police agitated and yelling. Patient was noted to be persistently altered in ED and became combative when sedation wore off. She was subsequently intubated for completion of work up. Pt was extubated this morning; reported that she was eating a hamburger but does not recall what happened what else happened prior to coming to the hospital. D enies recreational drug use except on opioid long time ago currently on suboxone;during conversation she admitted to IV drug use at time but will denied it later in the conversation. Pt denies any warm, chills. Reported some chest pain and palpitation that is improving. Pt also noted mild dyspnea and epigastric abd pain in midline. Details for the complaints were not able to be obtained due to patient's mental status ROS: Limited ROS was able to be obtained due to pt mental status/clinical condition General: denies feeling warm/cold. Pos for feeling sleepiness HEENT: Reported throat pain Heart: reported palpitation and chest pain Lungs: reported mild dyspnea Abdomen: reported epigastric abdominal pain in midline Physical Examination: General: pt's alert and oriented to name and place. Appears drowsy but arousable. HEENT: aeromask noted, conjunctiva injection b/l noted; no scleral icterus, PERRLA Heart: tachycardia, regular thythm, no murmur. Pt not answering if there's tenderness upon palpation of the chest wall Lungs: CTA b/l, no rales, wheezing, or rhonchi Abdomen: reported no tenderness upon palpation. Soft, no guarding or distention Extremities:radial pulse pal b/l. No edema in b/l LE Neuro: CN2-12 grossly intact; appears mildly confused; questionable memory status Psych: appears drowsy and pt showed no obvious signs of combative behavior at time of exam. Poor insight Assessment and Plan: 1. AMS/delirium 2/2 amphetamine/adderall intoxication -Patient was noted to be combative when sedation wore off. Utox pos for amphetamine -Leukocytosis likely reactive; no clear evidence of infection on imaging or UA. Cont to monitor clinically. Follow up Blood cultures. -Pt's outpt records revealed that she admitted to occasional adderall use which was noted not prescribed to her. -extubated this morning. -Midolozam PRN for anxiety now. Patient had received ativan, etomidate, midolozam, zemuron, halodol, and bendryl. -Vital signs including elevated temp, HR, and BP improving. Cooling devices. 2. Respiratory failure due to acute intoxication; resolved -Pt sat well on aeromask -Pulmonary/Critical care initially consulted for ventilator management; pt now s/p extubation 3. Drug induced Rhabdomyolysis -Cont aggressive IVF hydration with NS @ 200cc/hr. CK improving, cont to trend CK. lactic acidosis resolved. -Monitor renal function with BMP 4. Hypokalemia -K repleted. Cont to f/u BMP 5. Cannabis use d/o -Pt utox pos for cannaboids. -Outpt recorrds revealed pt admitted to occasional marijuna use 6.Buprenorphine use/PMH of opiate abuse -Pt reported on Buprenorphine from a doctor out of town. Questionable as utox neg for morphine. Will obtain more info when pt's mental status improve -per outpt record; pt admitted past heroin use; stated that she had been clean for 4 years during outpt visit. 7. PMH of HTN -PMH of HTN on Lisinopril outpt Cont current management as pt appears to be in stimulant intoxication. Cont with Hydralazine IV Q6H with holding parameters SBP<160; pt also on Versed PRN anxiety. Consider d/c hydralazine and resume home BP med if vital signs roughly stable until tmrw 8.depression/anxiety -diagnosis of depression/anxiety by PCP; -Pt reported PMH of bipolar on Ambilify; Home med listed as Venlafaxine -Consider psych consult when pt medically stable 9. PMH of asthma. Pt reported PMH of asthma. Home med does not reflect medication for asthma. Albuterol PRN ordered. Diet: Regular diet Dvt prophylaxis: lovenox, TEDS VS,Fishbone, I+O VS, Fishbone, I+O Laboratory Tests 11/15/18 12:00 11/15/18 12:30 Red Blood Count 4.69, Mean Corpuscular Volume 84.4, Mean Corpuscular Hemoglobin 29.6, Mean Corpuscular Hemoglobin Concent 35.1, Red Cell Distribution Width 12.5 11/15/18 16:02 Red Blood Count 4.17, Mean Corpuscular Volume 85.1, Mean Corpuscular Hemoglobin 30.0, Mean Corpuscular Hemoglobin Concent 35.2, Red Cell Distribution Width 12.5, Neutrophils (%) (Auto) 75.2 H, Lymphocytes (%) (Auto) 18.6 L, Monocytes (%) (Auto) 5.2 H, Eosinophils (%) (Auto) 0.2, Basophils (%) (Auto) 0.4, Neutrophils # (Auto) 13.8 H, Lymphocytes # (Auto) 3.4, Monocytes # (Auto) 1.0 H, Eosinophils # (Auto) 0.0, Basophils # (Auto) 0.1 11/15/18 21:57 11/16/18 04:54 Red Blood Count 3.96 L, Mean Corpuscular Volume 85.1, Mean Corpuscular Hemog lobin 29.3, Mean Corpuscular Hemoglobin Concent 34.4, Red Cell Distribution Width 12.7, Neutrophils (%) (Auto) 49.4, Lymphocytes (%) (Auto) 39.3, Monocytes (%) (Auto) 8.9 H, Eosinophils (%) (Auto) 1.4, Basophils (%) (Auto) 0.7, Neutrophils # (Auto) 5.5, Lymphocytes # (Auto) 4.4, Monocytes # (Auto) 1.0 H, Eosinophils # (Auto) 0.2, Basophils # (Auto) 0.1, Calcium Level 8.3 L, Aspartate Amino Transf (AST/SGOT) 50 H, Alanine Aminotransferase (ALT/SGPT) 19, Total Creatine Kinase 1988 H, Alkaline Phosphatase 74, Total Bilirubin 0.4, Total Protein 6.5, Albumin 3.4 Vital Signs Date Time Temp Pulse Resp B/P (MAP) Pulse Ox O2 Delivery O2 Flow Rate FiO2 11/16/18 07:39 125 15 96 21 11/16/18 06:30 101.0 136/93 (107) 11/16/18 05:11 Ventilator I&O- Last 24 Hours up to 6 AM 11/16/18 06:00 Intake Total 1121.30 ml Output Total 730 ml Balance 391.30 ml GME ATTESTATION GME ATTESTATION My faculty preceptor for this patient encounter was physically present during the encounter and was fully available. All aspects of the patient interview, examination, medical decision making process, and medical care plan development were reviewed and approved by the faculty preceptor. The faculty preceptor is aware and concurs with the plan as stated in the body of this note and will attest to such by his/her cosignature. ATTENDING NOTE I, Lidia Trent, have independently examined this patient and performed my own physical exam, as well as reviewed the documentation and edited where necessary. I have discussed in detail with the resident / student the findings and plan of treatment as documented by the resident / student and edited their note. I agree with their findings and treatment plan and have edited their documentation. I will continue to follow the patient during this hospital stay. CHARLIE BAIRD DO Nov 16, 2018 08:06 LIDIA TRENT MD Nov 16, 2018 15:16
[2018-11-16] MEDS: ENOXAPARIN 40 MG/0.4 ML SYRINGE (J1650) SC SCH (08:42)
[2018-11-16] MEDS ORDERED: CHLORHEXIDINE GLUCONATE 0.12 % 15ML UDC (PERIDEX ORAL RINSE) MT SCH (09:00)
--- NOTE | 2018-11-16 09:29 | IPN ---
DATE OF VISIT: 11/16/2018 I again attended Ms. Torres here in the intensive care unit. The patient has been examined and the chart reviewed. Despite propofol, she is easily arousable and follows commands. T-max overnight 101.5, currently 99.5. Blood pressure in the 130s. Heart rate 100 to 120 with a sinus mechanism. Respiratory rate 15 to 21. She easily over breathes the ventilator with good tidal volumes. Chest x-ray is clear. White blood cell count 11.1, hemoglobin 11.6 and platelet count 242,000. No left shift. Sodium 140, potassium 3.1, chloride 108, CO2 26, BUN 12, creatinine 0.65. Blood gas this morning done on a PRVC, rate of 15, tidal volume 400, PEEP of 5, FiO2 of 40% has a pH of 7.45, pCO2 of 35.6 and pO2 of 101.6. On exam, pupils react, sclerae are clear. Trachea is in the midline. She is arousable to voice and does follow commands despite propofol. Chest clear to auscultation and percussion. Symmetric air entry. No significant focal adventitious sounds identified. Cardiac exam mildly tachycardiac, regular, with no murmur or gallop. Peripheral pulses palpable. No edema. Abdomen thin, soft, nontender, with normoactive bowel sounds. No convincing organomegaly or masses. Extremities show a right femoral CVP in place. No cyanosis or clubbing. Neurologically, she moves all extremities. IMPRESSION: 1. Respiratory failure secondary to drug overdose, suspect unintentional. 2. Previous history of drug use. 3. Mental illness. RECOMMENDATIONS: At this point, will proceed with endotracheal extubation. Propofol is off and she is moving good tidal volumes. She was extubated without difficulty and there is no stridor. She is conversant and is cooperative at the moment. I did speak with Dr. Honeycutt regarding her status. At this point, care will be turned completely over to the hospitalist service. Please call us for any questions with which we can be of assistance.
[2018-11-16 11:15] LABS: MAGNESIUM LEVEL 1.8 MG/DL (1.8-2.4)
--- NOTE | 2018-11-16 11:56 | REP ---
Clinical: Central line placement . Comparison: 11/15/2018 . Findings: Endotracheal tube 2 cm above the sabina. Nasogastric tube courses below left hemidiaphragm in satisfactory position. No obvious vascular access identified. The mediastinum and cardiac silhouette are stable and within normal limits for portable technique. The lung stratton are clear without acute consolidation, effusion, or pneumothorax. Skeletal structures are intact. Impression: No acute cardiopulmonary process appreciated. Electronically Signed by Tato Alvarado MD 11/16/2018 02:02 A
--- NOTE | 2018-11-16 11:56 | REP ---
Clinical: Status post intubation . Comparison: 01/25/2010 . Technique: PA and lateral. Findings: Endotracheal tube 2 cm above the sabina. The mediastinum and cardiac silhouette are normal. The lung stratton are clear and without acute consolidation, effusion, or pneumothorax. The skeletal structures are intact and normal. Impression: 1. No acute cardiopulmonary process. 2. Endotracheal tube in satisfactory position. Electronically Signed by Tato Alvarado MD 11/16/2018 02:09 A
--- NOTE | 2018-11-16 12:04 | REP ---
Portable chest, 07:01 a.m., single AP view with the patient semi upright: Comparison is 2018 at 10:45 p.m. The lung stratton are clear. Cardiac size is normal. The marcelo, mediastinum and skeletal structures are unremarkable. The nasogastric tube and endotracheal tube remain in satisfactory positions, unchanged. Impression: No acute cardiopulmonary findings. Electronically Signed by Alberto Parnell MD 11/16/2018 07:45 A
[2018-11-16] MEDS ORDERED: ALBUTEROL SULFATE 2.5 MG/0.5 ML INH NEB SOLN NEB PRN (16:45)
[2018-11-16 16:56] LABS: BLOOD UREA NITROGEN 7 MG/DL (7-18); CALCIUM LEVEL 8.4 MG/DL (8.5-10.1); CARBON DIOXIDE LEVEL 24 MEQ/L (21-32); CHLORIDE LEVEL 109 MEQ/L (98-107); CREATININE FOR GFR 0.64 MG/DL (0.55-1.30); GLOMERULAR FILTRATION RATE > 60.0 (>60); GLUCOSE, FASTING 106 MG/DL (70-100); POTASSIUM SERUM 3.6 MEQ/L (3.5-5.1); SODIUM LEVEL 138 MEQ/L (136-145)
[2018-11-16] MEDS ORDERED: ACETAMINOPHEN 650 MG SUPP PR PRN (20:30)
[2018-11-17] VITALS (8 sets, daily range): BP systolic 96–133; BP diastolic 56–87
[2018-11-17] MEDS: NS 1,000 ML IV SCH ×2 (01:06→07:17)
[2018-11-17] MEDS: hydrALAZINE INJ 20 MG/ML VIAL IV SCH ×2 (02:17→09:00)
[2018-11-17 06:14] LABS: BLOOD UREA NITROGEN 7 MG/DL (7-18); CALCIUM LEVEL 8.2 MG/DL (8.5-10.1); CARBON DIOXIDE LEVEL 24 MEQ/L (21-32); CHLORIDE LEVEL 108 MEQ/L (98-107); CPK CREATINE PHOSPHOKINASE 1135 U/L (26-192); CREATININE FOR GFR 0.53 MG/DL (0.55-1.30); GLOMERULAR FILTRATION RATE > 60.0 (>60); GLUCOSE, FASTING 86 MG/DL (70-100); POTASSIUM SERUM 3.5 MEQ/L (3.5-5.1); SODIUM LEVEL 139 MEQ/L (136-145)
--- NOTE | 2018-11-17 07:52 | REP ---
Portable chest, 06:54 a.m., single AP view with the patient semi upright: Comparison is 11/16/2018. The endotracheal tube and nasogastric tube have been removed. Lung stratton are clear. Cardiac size is normal. The marcelo, mediastinum, skeletal structures are unremarkable. Impression: Essentially negative portable chest. The nasogastric tube and endotracheal tube have been removed. Electronically Signed by Alberto Parnell MD 11/17/2018 07:43 A
[2018-11-17] MEDS: ENOXAPARIN 40 MG/0.4 ML SYRINGE (J1650) SC SCH (09:00)
--- NOTE | 2018-11-17 13:20 | IPNPDOC ---
Text Note Date of Service The patient was seen on 11/17/18. NOTE HPI: Patient is a 32 yo female with PMH of IV drug use, depression/anxiety, HTN, and asthma presents to [facility] ED after being found by police agitated and yelling. Patient was noted to be persistently altered in ED and became combative when sedation wore off. She was subsequently intubated for completion of work up. Pt cont to report that she does not recall what happened prior to coming to the hospital. Denies recent recreational drug use; reported currently on suboxone. Pt denies any warm, chills. Reported still having some chest pain and palpitation. Denies dyspnea or abd pain. Details for the complaints were not able to be obtained due to patient's mental status/mood. Pt verbalized agreement to see psych ROS: Limited ROS was able to be obtained due to pt mental status/clinical condition General: denies feeling warm/cold. Heart: reported palpitation and chest pain Lungs: reported mild dyspnea Abdomen: Denies abd pain. Physical Examination: General:A&OX3. Appears drowsy but arousable. HEENT: aeromask noted, conjunctiva injection b/l improving; no scleral icterus. Heart: tachycardia, regular thythm, no murmur. Pt not answering if there's tenderness upon palpation of the chest wall Lungs: CTA b/l, no rales, wheezing, or rhonchi Abdomen: reported no tenderness upon palpation. Soft, no guarding or distention Extremities:radial pulse pal b/l. No edema in b/l LE Neuro: Appears mildly confused; questionable memory status Psych: appears drowsy and pt showed no obvious signs of combative behavior at time of exam. Poor insight Assessment and Plan: 1. AMS/delirium 2/2 amphetamine/adderall intoxication; imporiving -Mental status improving; pt A&OX3 but appears to be drowsy though easily arousable. Utox pos for amphetamine -Leukocytosis likely reactive; improving. Blood cx negX2. -Pt's outpt records revealed that she admitted to occasional adderall use which was noted not prescribed to her. -extubated 11/16/18 morning -Midolozam PRN for anxiety now. Patient had received ativan, etomidate, midolozam, zemuron, halodol, and bendryl. -Vital signs including elevated HR; Diltilzam 30mg PO Q8H hold if HR<110. Fever and elevated BP resolved. Cooling devices as needed. 2. Elevated creatinine kinase / Rhabdomyolysis -Pt IV access lost; cont oral hydration as CK in the 1100s now; CK improving. lactic acidosis resolved. -Monitor renal function with BMP 3. Hypokalemia; resolved -Cont to f/u BMP 4. Cannabis use d/o -Pt utox pos for cannaboids. -Outpt recorrds revealed pt admitted to occasional marijuna use -psych consulted for polysubstance use 5.Buprenorphine use/PMH of opiate abuse -Pt reported on Buprenorphine from Dr. Luna from [place]. Questionable as utox neg for morphine -per outpt record; pt admitted past heroin use. Pt stated that she had been clean for years during outpt visit. 6. PMH of HTN -PMH of HTN on Lisinopril outpt Cont current management as pt initially admitted. Cont with Hydralazine IV Q6H with holding parameters SBP<160; pt also on Versed PRN anxiety. Consider d/c hydralazine if vital signs roughly stable and resume home BP home 7.depression/anxiety -diagnosis of depression/anxiety by PCP on Venlafaxine; Pt denies suicidal ideation or homicidal ideations -Remote hx of bipolar disorder diagnosis. -Hold home med Venlafaxine now; psych consulted and we appreciate Dr. Sutton's input 8. PMH of asthma. Pt reported PMH of asthma. Home med does not reflect medication for asthma. Albuterol PRN ordered. Diet: Regular diet Dvt prophylaxis: lovenox, TEDS VS,Fishbone, I+O VS, Fishbone, I+O Laboratory Tests 11/16/18 16:11 Calcium Level 8.4 L 11/17/18 05:21 Calcium Level 8.2 L Vital Signs Date Time Temp Pulse Resp B/P (MAP) Pulse Ox O2 Delivery O2 Flow Rate FiO2 11/17/18 09:00 121/80 11/17/18 08:00 99.3 111 18 97 11/16/18 12:00 2.0 11/16/18 09:25 Aerosol Mask 28 I&O- Last 24 Hours up to 6 AM 11/17/18 06:00 Intake Total 2779 ml Output Total 2325 ml Balance 454 ml GME ATTESTATION GME ATTESTATION My faculty preceptor for this patient encounter was physically present during the encounter and was fully available. All aspects of the patient interview, examination, medical decision making process, and medical care plan development were reviewed and approved by the faculty preceptor. The faculty preceptor is aware and concurs with the plan as stated in the body of this note and will attest to such by his/her cosignature. ATTENDING NOTE I, Lidia Smith, have independently examined this patient and performed my own physical exam, as well as reviewed the documentation and edited where necessary. I have discussed in detail with the resident / student the findings and plan of treatment as documented by the resident / student and edited their note. I agree with their findings and treatment plan and have edited their documentation. I will continue to follow the patient during this hospital stay. CHARLIE BAIRD DO Nov 17, 2018 13:20 LIDIA SMITH MD Nov 17, 2018 13:30
[2018-11-17] MEDS ORDERED: LORazepam 2 MG/ML VIAL (J2060) IM PRN (13:30)
[2018-11-17] MEDS: BUPRENORPHINE/NALOXONE 8-2MG SUBLINGUAL TABLET(SUBOXONE) SL SCH (18:24)
[2018-11-18 05:49] VITALS: BP 129/88
[2018-11-18 06:00] VITALS: BP 129/88
[2018-11-18 07:29] LABS: BLOOD UREA NITROGEN 11 MG/DL (7-18); CALCIUM LEVEL 8.4 MG/DL (8.5-10.1); CARBON DIOXIDE LEVEL 25 MEQ/L (21-32); CHLORIDE LEVEL 107 MEQ/L (98-107); CPK CREATINE PHOSPHOKINASE 756 U/L (26-192); GLOMERULAR FILTRATION RATE > 60.0 (>60); GLUCOSE, FASTING 83 MG/DL (70-100); POTASSIUM SERUM 3.6 MEQ/L (3.5-5.1); SODIUM LEVEL 139 MEQ/L (136-145)
[2018-11-18] MEDS: ENOXAPARIN 40 MG/0.4 ML SYRINGE (J1650) SC SCH (08:14)
[2018-11-18] MEDS: BUPRENORPHINE/NALOXONE 8-2MG SUBLINGUAL TABLET(SUBOXONE) SL SCH (08:14)
[2018-11-18] MEDS ORDERED: PROAAER10 INH (09:23)
--- NOTE | 2018-11-18 10:46 | DS.PDOC ---
Discharge Summary General Date of Admission Nov 16, 2018 at 00:13 Date of Discharge 11/18/18 Discharge Summary PROCEDURES PERFORMED DURING STAY: ET tube and NG tube insertion s/p removal. Triple lumen central venous catheter insertion, s/p removal by patient herself ADMITTING DIAGNOSES: 1. AMS/delirium likely due to amphetamine use 1. Respiratory failure due to acute intoxication 3. Drug induced Rhabdomyolysis DISCHARGE DIAGNOSES: 1. 1. AMS/delirium 2/2 amphetamine/adderall intoxication; resolved 2. Elevated creatinine kinase / Rhabdomyolysis 3. Hypokalemia; resolved 4. Suboxone withdrawl with hx of chronic suboxone use; withdrawl symptoms resolved 5. Marijuna use d/o 6. PMH of HTN 7.depression/anxiety 8. PMH of asthma. COMPLICATIONS/CHIEF COMPLAINT: Altered Mental Status,Intoxication By Brain Gordon. HISTORY OF PRESENT ILLNESS: Patient is a 32 yo female with PMH of IV drug use, depression/anxiety, HTN, and asthma presents to [facility] ED after being found by police agitated and yelling. HOSPITAL COURSE: Patient was noted to be persistently altered in ED and became combative when sedation wore off. She was subsequently intubated for completion of work up. Central line insertion was attempted in ED but was unsuccessful. Patient was subsequently admitted to ICU, had EG tube and NT tube insertion, and triple lumen central line was inserted. She was given Midolozam PRN for anxiety, ativan, etomidate, midolozam, zemuron, halodol, and bendryl. Hydralazine IV was also given with holding BP holding parameters. Pt was extubated the next morning, and it was noted that patient ripped out her central line as well as peripheral IV access; attemp to re-establish IV access was unsuccessful. Pt reported that she was eating a hamburger but does not recall what happened what else happened prior to coming to the hospital. Pt continue to deny recreational drug use except on opioid long time ago currently on suboxone. Pt's vitals including elevated temp and BP resolved; tachycardia improving. Pt had suboxone withdrawl symptoms 11/17/18 thus suboxone was restarted. Psych was consulted with Dr. Sutton. It was noted by staff that patient had been cleared by psych to follow up outpatient. On the day of discharge, pt denies any fever, chills, N/V, abdominal pain, chest pain, palpitation, dyspnea, or tremors.Discussed with pt to discontinue recreational drug use and pt verbalized agreement. DISCHARGE MEDICATIONS: Please see below. ALLERGIES: Please see below. PHYSICAL EXAMINATION ON DISCHARGE: VITAL SIGNS: Please see below. GENERAL: A&OX3, not in acute distress HEENT: Head normocephalic, atraumatic, no conjunctiva injections or scleral icterus b/l NECK: supple CARDIOVASCULAR EXAMINATION: tachycardia, no murmur RESPIRATORY EXAMINATION: CTA, no rales, wheezing, or rhonchi, no accessory muscle use ABDOMINAL EXAMINATION: bowel sound aus b/l, no tenderness, guarding, or disten tion EXTREMITIES: radial pulse equal b/l, no edema/swelling in b/l LE NEUROLOGICAL EXAMINATION: A&OX3, memory and cognitive function grossly intact; insight improving PSYCHIATRIC EXAMINATION: Mildly anxious; otherwise appropriate to situation LABORATORY DATA: Please see below. IMAGING: Head CT showed no acute abnormalities. Several CXR confirming ET and NG tube in place as well as s/p removal PROGNOSIS: Fair ACTIVITY: [As tolerated]. DIET: 2g Na diet DISCHARGE PLAN AND INSTRUCTIONS: Follow up with PCP in 7 days. Follow up with psych within 7 days. DISPOSITION: 01 Home, Self-Care. ITEMS TO FOLLOWUP ON ON OUTPATIENT: 1. Tachycardia 2. Chronic suboxone use 3. Amphetamine/adderall use 4. Marijuna use d/o 5. Anxiety/depression; past bipolar diagnosis 6. Please return to the ER if you experience any problems DISCHARGE CONDITION: [Stable]. TIME SPENT ON DISCHARGE: Greater than 35 minutes. Vital Signs/I&Os Vital Signs Date Time Temp Pulse Resp B/P (MAP) Pulse Ox O2 Delivery O2 Flow Rate FiO2 11/18/18 06:00 98.9 112 18 129/88 (102) 97 11/16/18 12:00 2.0 11/16/18 09:25 Aerosol Mask 28 I&O- Last 24 Hours up to 6 AM 11/18/18 06:00 Intake Total 200 ml Output Total 100 ml Balance 100 ml Laboratory Data Labs 24H Laboratory Tests 2 11/18/18 06:30: Anion Gap 7L, Glomerular Filtration Rate > 60.0, Blood Urea Nitrogen 11#, Creatinine 0.50L, Sodium Level 139, Potassium Level 3.6, Chloride Level 107, Carbon Dioxide Level 25, Calcium Level 8.4L, Total Creatine Kinase 756H CBC/BMP Laboratory Tests 11/18/18 06:30 Calcium Level 8.4 L Microbiology Microbiology 11/15/18 Blood Culture - Preliminary, Resulted No Growth after 48 hours. All Specime... 11/15/18 Blood Culture - Preliminary, Resulted No Growth after 48 hours. All Specime... Discharge Medications Scheduled Atorvastatin Calcium (Atorvastatin Calcium) 20 Mg Tablet, 20 MG PO DAILY, (Reported) Buprenorphine HCl/Naloxone HCl (Suboxone 8 mg-2 mg Sl Film) 1 Each Film, 1 STRIP SL BID, (Reported) Guanfacine HCl (Guanfacine HCl ER) 3 Mg Tab.er.24h, 3 MG PO DAILY, (Reported) Trazodone HCl (Trazodone HCl) 50 Mg Tablet, 50 MG PO QHS, (Reported) Venlafaxine HCl (Venlafaxine HCl ER) 75 Mg Cap.er.24h, 75 MG PO DAILY, (Reported) Scheduled PRN Albuterol Sulfate (Proair Hfa) 8.5 Gm Hfa.aer.ad, 2 PUFF INH Q4-6HP PRN for wheezing Alprazolam (Alprazolam) 2 Mg Tablet, 2 MG PO BID PRN for ANXIETY, (Reported) Allergies Coded Allergies: No Known Allergies (Unverified , 11/15/18) GME ATTESTATION GME ATTESTATION My faculty preceptor for this patient encounter was physically present during the encounter and was fully available. All aspects of the patient interview, exa mination, medical decision making process, and medical care plan development were reviewed and approved by the faculty preceptor. The faculty preceptor is aware and concurs with the plan as stated in the body of this note and will attest to such by his/her cosignature. ATTENDING NOTE I, Lidia Smith, have independently examined this patient and performed my own physical exam, as well as reviewed the documentation and edited where necessary. I have discussed in detail with the resident / student the findings and plan of treatment as documented by the resident / student and edited their note. I agree with their findings and treatment plan and have edited their documentation . I will continue to follow the patient during this hospital stay. Time spent on discharge 35 minutes CHARLIE BAIRD DO Nov 18, 2018 10:46 LIDIA SMITH MD Nov 18, 2018 13:42
--- NOTE | 2018-11-18 13:17 | MHCR ---
DATE OF CONSULTATION: 11/17/2018 HISTORY OF PRESENT ILLNESS: This is a 32-year-old woman who I was asked to see. She was in the intensive care unit (ICU) and is now extubated. She apparently was admitted with respiratory failure that was felt to be due to a drug overdose. The patient insists that she does not remember overdosing. It is felt that she probably overdosed on stimulants. Toxicology was positive for amphetamine and cannabis. The reason they wanted me to see the patient was because this patient gives a history of being treated for bipolar disorder and due to the seriousness of her overdose and significant substance abuse history. The patient is on Suboxone for her opioid use disorder. She states that primary care provider prescribes the following medications: - alprazolam 2 mg twice a day - trazodone 50 mg at night as needed for insomnia - Effexor 75 mg daily - guanfacine 3 mg daily - Suboxone 8 mg sublingual twice a day and that is prescribed by Dr. Mccoy The patient tells me today that she had been feeling fine before the overdose. She cannot recall what happened to her. She denies that she was feeling depressed. She felt that she had been stable. PAST PSYCHIATRIC HISTORY: The patient tells me that she has been admitted to psychiatric units but not here at [facility]. She cannot recall what unit she has been admitted to. The patient has lived in various states in the past. She says that she has never made any suicidal attempts. I was able to see her records from Dr. Em from 12/09/2009 when he did an initial evaluation at [facility] outpatient addictions program and he did give her a diagnosis of psychothymic disorder, anxiety disorder not otherwise specified, cannabis abuse, bipolar 2 disorder and rule out benzodiazepine abuse. He was treating her with Abilify 2 mg at night and Zoloft 150 mg daily and Klonopin as needed for anxiety. He discharged her from the clinic because the patient seemed to be having a problem with misusing her Klonopin. FAMILY HISTORY: The patient apparently has a family history of substance abuse but no other psychiatric history or suicides. SUBSTANCE ABUSE: The patient has polysubstance abuse history that is pretty significant, as noted above. MENTAL STATUS EXAMINATION: She is alert and oriented times three. Eye contact is fair. Psychomotor activity is normal. She is a bit irritable. She keeps stating that she has answered the same questions multiple times before. The patient says her mood is fine. Affect, as I said, appears to be a bit irritable. She is not psychotic, suicidal or homicidal. Concentration is fair. Memory intact. Insight and judgment good. DIAGNOSES: 1. Bipolar disorder by history. 2. Opioid use disorder, on Suboxone. 3. Stimulant use disorder. 4. Cannabis use disorder. RECOMMENDATIONS: At this point, the patient states that she is doing fine on her current medications. She says that she has an appointment coming up next week with primary care provider, who prescribes her medicines for her. I do not have any recommendations at this point. She is not a danger to herself or others and she should continue to see her outpatient providers. I suspect that this was probably an accidental overdose.
== END 2018-11-18 10:30 | disposition home or self-care (01) | DRG 812 ==
LOC: M ED 10:46 → M ED INP 11-16 00:13 → M ICU 11-16 01:11 → M MS5PR 11-17 13:09
PROVIDERS: ADMIT Internal Medicine; ATTEND Internal Medicine
PROC: 06HM33Z Insertion of Infusion Device into Right Femoral Vein, Percutaneous Approach (ICD-10-PCS; 2018-11-15)
PROC: 0BH17EZ Insertion of Endotracheal Airway into Trachea, Via Natural or Artificial Opening (ICD-10-PCS; 2018-11-15)
PROC: 5A1935Z Respiratory Ventilation, Less than 24 Consecutive Hours (ICD-10-PCS; principal; 2018-11-16)
DX: T43.621A Poisoning by amphetamines, accidental (unintentional), initial encounter (principal); J96.90 Respiratory failure, unspecified, unspecified whether with hypoxia or hypercapnia; M62.82 Rhabdomyolysis; R41.82 Altered mental status, unspecified; F31.9 Bipolar disorder, unspecified; F41.9 Anxiety disorder, unspecified; I10 Essential (primary) hypertension; J45.909 Unspecified asthma, uncomplicated; E87.6 Hypokalemia; F12.10 Cannabis abuse, uncomplicated; F11.10 Opioid abuse, uncomplicated; F15.10 Other stimulant abuse, uncomplicated